=== PATIENT | male | born 1965 | race Two or more races ===

== ENCOUNTER 2024-06-05 12:18 | Emergency (ER) | payer OTHER ==
[~2024-06-05] VITALS: Ht 175.3 cm; Wt 118.9 kg
--- NOTE | 2024-06-05 13:10 | DVH ---
EXAM: XY R HAND 3 VIEW XRAY CLINICAL HISTORY: FALL COMPARISON: None TECHNIQUE: XY R HAND 3 VIEW XRAY Findings/Impression: 3 views of the right hand. Nondisplaced fractures of the 1st and 4th distal phalanges. Mild soft tissue edema and injuries. There is no evidence of dislocation, blastic, or lytic lesions. No radiopaque foreign bodies.
--- NOTE | 2024-06-05 13:10 | ED.PDOC ---
Musculoskeletal HPI Comments A 59 YEAR OLD MALE PRESENTS TO THE ED WITH CHIEF COMPLAINT OF RIGHT HAND INJURY. PATIENT REPORTS THAT AROUND 10AM AT WORK HE HAD FELL WHILE HOLDING METAL IN HIS RIGHT HAND, CAUSING INJURY TO HIS RIGHT THUMB AND FOURTH FINGER. PATIENT RELAYS THAT HE SMASHED THE FINGERS AND CUT THEM OPEN WITH THE METAL HE WAS HOLDING. PATIENT STATES HE HAD CLEANED AND WRAPPED HIS FINGERS. PATIENT NOTES HE HAS NOT HAD A RECENT TETANUS VACCINE. PATIENT DENIES ANY NUMBNESS, WEAKNESS, OR FURTHER INJURY. Chief Complaint: Fall Injury Time Seen by MD: 13:04 Primary Care Provider: THELMA Reviewed Notes: Nurses Notes, Medications, Allergies Home Meds Active Scripts Ibuprofen (Ibuprofen) 800 Mg Tab, 1 TAB PO TID, #30 TAB Prov:ALE LEÓN 06/05/24 Cephalexin Monohydrate (Cephalexin) 500 Mg Tab, 1 TAB PO QID, #40 TAB Prov:ALE LEÓN 06/05/24 Information Source: Patient Mode of Arrival: Ambulatory Location: Right Extremity Location: Finger 4, Hand, Thumb Timing: Hours Prehospital treatment: None Severity: Moderate Able to Move Extremity: Yes Bear Weight: Fully Pain: Moderate Mechanism: Metal Cut Circumstances: Work Related Onset of Symptoms: After Trauma Symptoms: Swelling, Pain DVT Risk Factors: NONE Last Tetanus: > 5 Years, Unknown Associated signs and symptoms: Laceration, Hand pain Past Medical History PAST MEDICAL HISTORY: Denies Surgical History: Denies all surgeries Family History Family History: Reviewed,noncontributory to illness Social History Smoker: Non-Smoker Alcohol: Denies ETOH Use Drugs: Denies Drug Use Lives In: Home Constitutional: denies: chills, diaphoresis, fatigue, fever, malaise, sweats, weakness, others EENTM: denies: blurred vision, double vision, ear bleeding, ear discharge, ear drainage, ear pain, ear ringing, eye pain, eye redness, hearing loss, mouth pain, mouth swelling, nasal discharge, nose bleeding, nose congestion, nose pain, photophobia, tearing, throat pain, throat swelling, voice changes, others Respiratory: denies: cough, hemoptysis, orthopnea, SOB at rest, shortness of breath, SOB with excertion, stridor, wheezing, others Cardiovascular: denies: chest pain, dizzy spells, diaphoresis, Dyspnea on exertion, edema, irregular heart beat, left arm pain, lightheadedness, palpitations, PND, syncope, others Gastrointestinal: denies: abdomen distended, abdominal pain, blood streaked bowels, constipated, diarrhea, dysphagia, difficulty swallowing, hematemesis, melena, nausea, poor appetite, poor fluid intake, rectal bleeding, rectal pain, vomiting, others Genitourinary: denies: burning, dysuria, flank pain, frequency, hematuria, incontinence, penile discharge, penile sore, pain, testicle pain, testicle swelling, urgency, others Neurological: denies: dizziness, fainting, headache, left sided numbness, left sided weakness, numbness, paresthesia, pre-existing deficit, right sided numbness, right sided weakness, seizure, speech problems, tingling, tremors, weakness, others Musculoskeletal: reports: joint pain, others (RT HAND PAIN); denies: back pain, gout, joint swelling, muscle pain, muscle stiffness, neck pain Integumetry: reports: laceration (RT 4TH FINGER LAC); denies: bruises, change in color, change in hair/nails, dryness, lesions, lumps, rash, wounds, others Allergic/Immunocompromised: denies: Difficulty Healing, Frequent Infections, Hives, Itching, others Hematologic/Lymphatic: denies: anemia, blood clots, easy bleeding, easy bruising, swollen glands, others Endocrine: denies: excessive hunger, excessive sweating, excessive thirst, excessive urination, flushing, intolerance to cold, intolerance to heat, unexplained weight gain, unexplained weight loss, others Psychiatric: denies: anxiety, bipolar disorder, depression, hopeless, panic disorder, schizophrenia, sleepless, suicidal, others All Other Systems: Reviewed and Negative Physical Exam General Appearance: No Apparent Distress, Normal HEENT: Normal ENT Inspection, PERRL/EOMI Neck: Full Range of Motion, Non-Tender, Normal, Normal Inspection Respiratory: Chest Non-Tender, Lungs Clear, No Accessory Muscle Use, No Respiratory Distress, Normal Breath Sounds Cardiovascular: No Edema, No JVD, No Murmur, No Gallop, Normal Peripheral Pulses, Regular Rate/Rhythm Breast Exam: Deferred Gastrointestinal: No Organomegaly, Non Tender, No Pulsatile Mass, Normal Bowel Sounds, Soft Genitalia: Deferred Pelvic: Deferred Rectal: Deferred Extremities: No calf tenderness, Normal capillary refill, Normal range of motion, No pedal edema, Tender (AND LACERATION ON RIGHT 1ST AND 4TH FINGERS, BONY TENDERNESS, NO DEFORMITY. ) Musculoskeletal : Apperance: Normal Neurologic: Alert, residential designer II-XII nml as Tested, No Motor Deficits, Normal Affect, Normal Mood, No Sensory Deficits Cerebellar Function: Normal Reflexes: Normal Skin: Dry, Lacerations (5CM LACERATION ON RIGHT 4TH DISTAL FINGER, NO BLEEDING AND FB, NEUROVASCULAR INTACT. NORMAL ROM. ), Normal Color, Warm Peripheral Pulses: 2+ carotid (R), 2+ carotid (L), 2+ Radial (R), 2+ Radial (L) Lymphatic: No Adenopathy Was a procedure done? Was a procedure done?: Yes Sedation Sedation?: No Laceration Repair : Location RIGHT THIRD FINGER Length 5CM Anesthetic: Lidocaine Laceration Repair Prep: Saline, Betadine, Manual Scrub Laceration Repair Wound Comple: subcut tissue repair Laceration Repair: Number of sutures (12 SUTURES OF 4-0 ETHILON), SQ, Size (4-0), Nylon, Simple, Bacitracin, Gauze Informed consent obtained: Yes Risks, benefits, and alternati: Yes Images 1 - 1 - Differential Diagnosis EXT Differential Diagnosis: Fracture, Laceration, Contusion, Strain, Bursitis X-Ray, Labs, Meds, VS Vital Signs Date Time Temp Pulse Resp B/P (MAP) Pulse Ox O2 Delivery O2 Flow Rate FiO2 06/05/24 13:11 98.8 96 18 138/85 (102) 97 98.8 06/05/24 13:11 96 18 97 Room Air 06/05/24 12:33 98.8 96 18 138/85 (102) 97 Current Medications Medications (Trade) Dose Ordered Sig/Nancy Route Start Time Stop Time Status Last Admin Diphtheria/ Tetanus/Acell Pertussis (Boostrix T-Dap) 0.5 ml ONCE ONCE IM 06/05/24 13:15 06/05/24 13:16 DC 06/05/24 13:30 Ceftriaxone Sodium (Rocephin) 1,000 mg ONCE ONCE IM 06/05/24 13:15 06/05/24 13:16 DC 06/05/24 13:30 Ibuprofen (Motrin Tablet) 800 mg ONCE ONCE PO 06/05/24 13:15 06/05/24 13:16 DC 06/05/24 13:30 RT HAND XR: Findings/Impression: 3 views of the right hand. Nondisplaced fractures of the 1st and 4th distal phalanges. Mild soft tissue edema and injuries. There is no evidence of dislocation, blastic, or lytic lesions. No radiopaque foreign bodies. X-Ray, Labs, Meds, VS Comment EXTERNAL MEDICAL RECORDS REVIEWED: [NONE] INDEPENDENT HISTORIANS: [NONE] SOCIAL DETERMINANTS OF HEALTH: [NONE] LABS ORDERED: NONE REVIEWED AND INTERPRETED RESULTS: RT HAND XR IMAGING ORDERED: RT HAND XR TREATMENTS ORDERED: LACERATION REPAIR, FROG SPLINT PLACED ON RT THUMB AND RING FINGER. PROCEDURES PERFORMED: NONE CRITICAL CARE TIME: NONE I HAVE DISCUSSED THE PATIENT WITH THE ATTENDING PHYSICIAN DR. ECHOLS AND HE AGREES WITH THE PATIENT'S PLAN OF CARE AND DISPOSITION. GIVEN THE HISTORY AND PRESENT ILLNESS OF THE PATIENT, AFTER REVIEWING LABS, IMAGING, AND COURSE OF TREATMENT ADMINISTERED DURING THEIR ED VISIT, THERE IS LOW SUSPICION FOR RED FLAG FINDINGS. BASED ON HISTORY OF PRESENT ILLNESS, AND PHYSICAL EXAM, PATIENT WILL BE DISCHARGED HOME. DISCUSSED PLAN FOR DISCHARGE HOME WITH RX. MEDICATION WARNINGS GIVEN. SHARED DECISION MAKING: DISCUSSED WITH PATIENT THAT THEIR WORKUP WAS NORMAL. PATIENT INSTRUCTED TO FOLLOW UP WITH PRIMARY CARE PROVIDER IN 1-2 DAYS FOR RE- EVALUATION OF SYMPTOMS. PATIENT VERBALIZES UNDERSTANDING TO RETURN TO ED FOR NEW OR WORSENING SYMPTOMS OR IF FOLLOW UP WITH PCP CANNOT BE OBTAINED. PATIENT FEELS COMFORTABLE GOING HOME AT THIS TIME. ALL QUESTIONS ADDRESSED AT TIME OF DISCHARGE. Images Reviewed?: Images reviewed and evaluated by me Time of 1ST Reevaluation: 14:03 Reevaluation 1ST: Improved Patient Education/Counseling: Diagnosis, Treatment, Need For Follow Up Family Education/Counseling: Treatment, No Family Present Medical Screening: No EMC Exist At This Time Departure 1 Departure Time of Disposition: 14:04 Impression: Primary Impression: Laceration of right ring finger Qualified Codes: S61.214A - Laceration without foreign body of right ring finger without damage to nail, initial encounter Additional Impressions: Fracture of phalanx of right ring finger Qualified Codes: S62.664B - Nondisplaced fracture of distal phalanx of right ring finger, initial encounter for open fracture Fracture of phalanx of right thumb Qualified Codes: S62.524A - Nondisplaced fracture of distal phalanx of right thumb, initial encounter for closed fracture Disposition: HOME / SELF CARE / HOMELESS Condition: Stable Additional Instructions: FOLLOW-UP WITH WORKMAN COMP IN 2 DAYS. TAKE MEDICATIONS PRESCRIBED. RETURN TO ED FOR ANY NEW OR WORSENING SYMPTOMS. e-Prescriptions Ibuprofen (Ibuprofen) 800 Mg Tab 1 TAB PO TID, #30 TAB Prov: ALE LEÓN 06/05/24 Cephalexin Monohydrate (Cephalexin) 500 Mg Tab 1 TAB PO QID, #40 TAB Prov: ALE LEÓN 06/05/24 Discharged With: Self Critical Care Note Critical Care Time?: No Stability Stability form required: No Heart Score Heart Score: Heart Score Response (Comments) Value History N/A 0 EKG N/A 0 Age N/A 0 Risk Factors N/A 0 Troponin N/A 0 Total 0 I personally scribed for ALE LEÓN ([email or web address]) on 06/05/24 at 13:10. Electronically submitted by Rajesh Covington ([email or web address]). I personally scribed for ALE LEÓN ([email or web address]) on 06/05/24 at 13:14. Electronically submitted by Rajesh Covington ([email or web address]). I personally scribed for ALE LEÓN ([email or web address]) on 06/05/24 at 13:23. Electronically submitted by Rajesh Covington ([email or web address]). I personally scribed for ALE LEÓN ([email or web address]) on 06/05/24 at 13:31. Electronically submitted by Rajesh Covington ([email or web address]). ALE LEÓN Jun 05, 2024 13:10
[2024-06-05 13:11] VITALS: BP 138/85; PULSE 96; RESP 18; TEMP 98.8; O2SAT 97
[2024-06-05] MEDS: TETANUS-DIPTH-ACEL PERTUSSIS 0.5ML SYR Tdap IM ONE (13:30)
[2024-06-05] MEDS: cefTRIAXone SOD 1,000 MG VL IM ONE (13:30)
[2024-06-05] MEDS: IBUPROFEN 800 MG TAB PO ONE (13:30)
[2024-06-05] MEDS ORDERED: IBUP-1456 PO (13:51)
[2024-06-05] MEDS ORDERED: CEPH500T PO (13:51)
== END 2024-06-05 14:33 | disposition home or self-care (01) ==
LOC: ER 12:18
DX: S62.524A Nondisplaced fracture of distal phalanx of right thumb, initial encounter for closed fracture (principal); S62.664A Nondisplaced fracture of distal phalanx of right ring finger, initial encounter for closed fracture; Z79.1 Long term (current) use of non-steroidal anti-inflammatories (NSAID); Z79.899 Other long term (current) drug therapy; W18.39XA Other fall on same level, initial encounter; Y93.89 Activity, other specified; Y92.89 Other specified places as the place of occurrence of the external cause; Y99.0 Civilian activity done for income or pay
CPT/HCPCS: 12002; 29130; 73130; 90471; 90715; 96372; 99284; J0696

== ENCOUNTER 2024-06-10 09:46 | Emergency (ER) | payer OTHER ==
[~2024-06-10] VITALS: Ht 179.1 cm; Wt 118.3 kg
[~2024-06-10 09:46] MED LIST: CEPH500T PO; IBUP-1456 PO
--- NOTE | 2024-06-10 10:51 | ED.PDOC ---
History of Present Illness(SKN HPI Comments 59 year old presents for wound check. no complaints. Chief Complaint: Suture Removal Time Seen by MD: 10:02 Primary Care Provider: THELMA History of Present Illness: Nurses Notes, Medications, Allergies Allergies: Coded Allergies: NO KNOWN ALLERGIES (Unverified , 06/10/24) Home Meds Active Scripts Ibuprofen (Ibuprofen) 800 Mg Tab, 1 TAB PO TID, #30 TAB Prov:ALE LEÓN 06/05/24 Cephalexin Monohydrate (Cephalexin) 500 Mg Tab, 1 TAB PO QID, #40 TAB Prov:ALE LEÓN 06/05/24 Information Source: Patient Mode of Arrival: Ambulatory Past Medical History PAST MEDICAL HISTORY: Denies Surgical History: Denies all surgeries Family History Family History: Reviewed,noncontributory to illness Social History Smoker: Non-Smoker Alcohol: Denies ETOH Use Drugs: Denies Drug Use Lives In: Home All Other Systems: Reviewed and Negative (per hpi) Physical Exam General Appearance: No Apparent Distress, Normal HEENT: Normal ENT Inspection, Pharynx Normal, TMs Normal Neck: Full Range of Motion, Non-Tender, Normal, Normal Inspection Respiratory: Chest Non-Tender, Lungs Clear, No Accessory Muscle Use, No Respiratory Distress, Normal Breath Sounds Cardiovascular: No Edema, No JVD, No Murmur, No Gallop, Normal Peripheral Pulses, Regular Rate/Rhythm Breast Exam: Deferred Gastrointestinal: No Organomegaly, Non Tender, No Pulsatile Mass, Normal Bowel Sounds, Soft Genitalia: Deferred Pelvic: Deferred Rectal: Deferred Extremities: No calf tenderness, Normal capillary refill, Normal inspection, Normal range of motion, Non-tender, No pedal edema Musculoskeletal : Apperance: Normal Neurologic: Alert, No Motor Deficits, Normal Affect, Normal Mood, No Sensory Deficits Cerebellar Function: Normal Reflexes: Normal Skin: Dry, Normal Color, Warm Lymphatic: No Adenopathy Was a procedure done? Was a procedure done?: No Differential Diagnosis (INTG) Differential Diagnosis: Other X-Ray, Labs, Meds, VS Vital Signs Date Time Temp Pulse Resp B/P (MAP) Pulse Ox O2 Delivery O2 Flow Rate FiO2 06/10/24 10:00 98.7 97 18 151/84 (106) 95 X-Ray, Labs, Meds, VS Comment Patient was rechecked for laceration Examination shows no evidence of cellulitis, lymphangitis, systemic infection or any other process requiring immediate medical or surgical intervention at this time. Time of 1ST Reevaluation: 10:50 Reevaluation 1ST: Improved Patient Education/Counseling: Diagnosis, Treatment Family Education/Counseling: Diagnosis, Treatment Departure 1 Departure Time of Disposition: 10:51 Impression: Primary Impression: Visit for wound check Disposition: 01 HOME / SELF CARE / HOMELESS Condition: Stable Discharged With: Self Critical Care Note Critical Care Time?: No Stability Stability form required: No Heart Score Heart Score: Heart Score Response (Comments) Value History N/A 0 EKG N/A 0 Age N/A 0 Risk Factors N/A 0 Troponin N/A 0 Total 0 JACINDA COWAN NP Jun 10, 2024 10:51
[2024-06-10 10:55] VITALS: BP 151/84; PULSE 97; RESP 18; TEMP 98.7; O2SAT 95
== END 2024-06-10 11:01 | disposition home or self-care (01) ==
LOC: ER 09:46
DX: S61.214D Laceration without foreign body of right ring finger without damage to nail, subsequent encounter (principal); Z79.1 Long term (current) use of non-steroidal anti-inflammatories (NSAID); X58.XXXD Exposure to other specified factors, subsequent encounter

== ENCOUNTER → 2024-06-16 09:13 | Emergency (ER) | payer OTHER ==
[~2024-06-16] VITALS: Ht 180.3 cm; Wt 115.2 kg
[2024-06-16 09:34] VITALS: BP 152/106; PULSE 110; RESP 18; TEMP 97.8; O2SAT 95
--- NOTE | 2024-06-16 10:11 | DVH ---
XY R HAND 3 VIEW XRAY, INDICATION: Thumb pain at the base of metacarpal TECHNICAL DATA: Frontal, oblique and lateral views were obtained of the right hand. COMPARISON: XY R HAND 3 VIEW XRAY on DOS: 06/05/24 FINDINGS: Mildly displaced fracture of the distal 1st phalanx. Joint spaces are maintained. Alignment is anatom ic. Soft tissues are within normal limits. IMPRESSION: Mildly displaced fracture of the distal 1st phalanx.
--- NOTE | 2024-06-16 10:46 | ED.PDOC ---
History of Present Illness(SKN HPI Comments Pleasant 59-year-old male that presents for suture removals. Was recently seen after a crushed injury. Patient also complains of persistent pain to the 1st distal phalanx rated as moderate Chief Complaint: Suture Removal Time Seen by MD: 09:18 Primary Care Provider: THELMA History of Present Illness: Nurses Notes, Medications, Allergies Allergies: Coded Allergies: NO KNOWN ALLERGIES (Unverified , 06/10/24) Home Meds Active Scripts Ibuprofen (Ibuprofen) 800 Mg Tab, 1 TAB PO TID, #30 TAB Prov:ALE LEÓN 06/05/24 Cephalexin Monohydrate (Cephalexin) 500 Mg Tab, 1 TAB PO QID, #40 TAB Prov:ALE LEÓN 06/05/24 Information Source: Patient, Relative Mode of Arrival: Ambulatory Past Medical History PAST MEDICAL HISTORY: Denies Surgical History: Denies all surgeries Family History Family History: Reviewed,noncontributory to illness Social History Smoker: Non-Smoker Alcohol: Denies ETOH Use Drugs: Denies Drug Use Lives In: Home All Other Systems: Reviewed and Negative (per hpi) Physical Exam General Appearance: No Apparent Distress, Normal HEENT: Normal ENT Inspection, Pharynx Normal, TMs Normal Neck: Full Range of Motion, Non-Tender, Normal, Normal Inspection Respiratory: Chest Non-Tender, Lungs Clear, No Accessory Muscle Use, No Respiratory Distress, Normal Breath Sounds Cardiovascular: No Edema, No JVD, No Murmur, No Gallop, Normal Peripheral Pulses, Regular Rate/Rhythm Breast Exam: Deferred Gastrointestinal: No Organomegaly, Non Tender, No Pulsatile Mass, Normal Bowel Sounds, Soft Genitalia: Deferred Pelvic: Deferred Rectal: Deferred Extremities: No calf tenderness, Normal capillary refill, Normal inspection, Normal range of motion, Non-tender, No pedal edema Musculoskeletal : Apperance: Normal Neurologic: Alert, No Motor Deficits, Normal Affect, Normal Mood, No Sensory Deficits Cerebellar Function: Normal Reflexes: Normal Skin: Dry, Normal Color, Warm Lymphatic: No Adenopathy Was a procedure done? Was a procedure done?: No Differential Diagnosis (INTG) Differential Diagnosis: Other X-Ray, Labs, Meds, VS Vital Signs Date Time Temp Pulse Resp B/P (MAP) Pulse Ox O2 Delivery O2 Flow Rate FiO2 06/16/24 09:34 110 18 95 Room Air 06/16/24 09:34 97.8 110 18 152/106 (121) 95 97.8 06/16/24 09:24 97.8 110 18 163/93 (116) 95 PATIENT: GINA THOMASCCT: [id number]: [id number] : 1965 LOC: ER ROOM / BED: / AGE / SEX: 59 / M ADM STATUS: REG ER SERVICE [id number] ORDERING PHYSICIAN: JACINDA COWAN NP PROCEDURE(s): RHAN - R HAND 3 VIEW XRAY REASON: Thumb pain at the base of metacarpal ORDER NUMBER(s): [id number], ACCESSION NUMBER(s): [id number] XY R HAND 3 VIEW XRAY, INDICATION: Thumb pain at the base of metacarpal TECHNICAL DATA: Frontal, oblique and lateral views were obtained of the right hand. COMPARISON: XY R HAND 3 VIEW XRAY on DOS: 06/05/24 FINDINGS: Mildly displaced fracture of the distal 1st phalanx. Joint spaces are maintained. Alignment is anatomic. Soft tissues are within normal limits. IMPRESSION: Mildly displaced fracture of the distal 1st phalanx. ATED BY: FELIX CORONA MD DICTATED DATE/TIME: 06/16/24 100 SIGNED BY: FELIX CORONA MD SIGNED DATE/TIME: 06/16/24 100 CC: X-Ray, Labs, Meds, VS Comment Suture Removal Alcohol swab used to clean area thoroughly. Used sterile suture removal kit to remove sutures. Clean, dry, intact. No discharge seen. Education provided to keep area clean and dry. If gets soiled, use soap and water to clean. Watch out for signs and symptoms of infection including fever, chills, yellow or green discharge, increased pain, swelling etc. Thumb Fracture MDM Fracture of their Right thumb Right hand dominant Patients current symptoms not typical of compartment syndrome, arterial or nerve injury. Immobilization: Thumb Spica Splint The dislocation has been satisfactorily reduced and immobilized, and the patient has been given a pharmacologic means to deal with their discomfort. Disposition: Discharge. Patient has been given strict return precautions and understands the need to follow up within 48 with their primary care doctor. They understand that they may need an operation and that the care provided in the ED today is stabilizing care but not definitive care for this injury and they will also need follow up with the Hand Surgeon. Time of 1ST Reevaluation: 10:43 Reevaluation 1ST: Improved Patient Education/Counseling: Diagnosis, Treatment Family Education/Counseling: Diagnosis, Treatment Departure 1 Departure Time of Disposition: 10:42 Impression: Primary Impression: Visit for suture removal Additional Impression: Phalanx, distal fracture of finger Qualified Codes: S62.524S - Nondisplaced fracture of distal phalanx of right thumb, sequela Disposition: HOME / SELF CARE / HOMELESS Condition: Fair Critical Care Note Critical Care Time?: No Stability Stability form required: No Heart Score Heart Score: Heart Score Response (Comments) Value History N/A 0 EKG N/A 0 Age N/A 0 Risk Factors N/A 0 Troponin N/A 0 Total 0 JACINDA COWAN NP Jun 16, 2024 10:46
== END | disposition home or self-care (01) ==
LOC: ER 09:13
DX: S62.521A Displaced fracture of distal phalanx of right thumb, initial encounter for closed fracture (principal); Z48.02 Encounter for removal of sutures; Z79.1 Long term (current) use of non-steroidal anti-inflammatories (NSAID); W23.0XXA Caught, crushed, jammed, or pinched between moving objects, initial encounter; Y93.89 Activity, other specified; Y92.89 Other specified places as the place of occurrence of the external cause; Y99.8 Other external cause status
CPT/HCPCS: 29125; 73130